=== PATIENT | female | born 1980 | race Caucasian/White ===

== ENCOUNTER 2017-07-21 09:00 | Emergency (ER) | payer MEDICAID ==
[~2017-07-21] VITALS: Wt 52.5 kg
[~2017-07-21 09:00] MED LIST: CEPH-443 PO; CIPR500T4 PO; PROM25TA14 PO; TRAM50TA2 PO
[2017-07-21] MEDS ORDERED: AZIT250T94 PO (09:48)
[2017-07-21] MEDS ORDERED: FLUT9.9S NASAL (09:48)
[2017-07-21] MEDS ORDERED: MED4DP PO (09:48)
[2017-07-21] MEDS ORDERED: LORA5TAB4 PO (09:48)
--- NOTE | 2017-07-21 12:09 | ERD ---
ER Documentation Chief Complaint Chief Complaint cough, shirley, joint, pain, earache, shirley HPI Patient is a 37-year-old female presenting to the emergency department with complaints of moderate, intermittent flulike symptoms for 1 month. She did take ampicillin for 7 days which did not improve her symptoms. She additionally reports full body aches. No other symptoms reported at this time. ROS All systems reviewed and are negative except as per history of present illness. Medications Home Meds Active Scripts Loratadine* (Claritin*) 5 Mg Tab.rapdis, 5 MG PO DAILY, #30 TAB Prov:TATO PRINGLE PA-C 07/21/17 Fluticasone Propionate (Flonase Allergy Relief) 9.9 Ml [place].susp, 1 SPRAY NASAL BID, #1 BOTTLE TO EACH NOSTRIL Prov:TATO PRINGLE PA-C 07/21/17 Azithromycin* (Zithromax*) 250 Mg Tablet, 250 MG PO .ZPACK DIRECTED, #6 TAB TAKE 500 MG (2 TABS) THE FIRST DAY THEN 250 MG (1 TAB) DAYS 2-5 Prov:TATO PRINGLE PA-C 07/21/17 Methylprednisolone* (Medrol* DOSE PACK) 4 Mg/Dose-Pack Tab.ds.pk, 4 MG PO . DIRECTED, #1 PACKET Prov:TATO PRINGLE PA-C 07/21/17 Cephalexin* (Keflex*) 500 Mg Capsule, 500 MG PO QID for 5 Days, CAP Prov:SUSAN TERRY NP 01/07/16 Promethazine Hcl* (Phenergan*) 25 Mg Tablet, 12.5 MG PO Q6 Y for NAUSEA AND/OR VOMITING, #10 TAB Prov:REGLA CASTRO MD 04/06/15 Promethazine Hcl* (Phenergan*) 25 Mg Tablet, 12.5 MG PO Q6 Y for NAUSEA AND/OR VOMITING, #12 TAB Prov:REGLA CASTRO MD 04/06/15 Tramadol HCl (Tramadol HCl) 50 Mg Tab, 50 MG PO Q4 Y for PAIN, #20 TAB Prov:REGLA CASTRO MD 04/06/15 Ciprofloxacin Hcl* (Ciprofloxacin Hcl*) 500 Mg Tablet, 500 MG PO BID for 10 Days , TAB Prov:REGLA CASTRO MD 04/06/15 Allergies Allergies: Coded Allergies: No Known Drug Allergy (Verified Allergy, Unknown, 01/07/16) PMhx/Soc History of Surgery: Yes (C SECTIONX2) Anesthesia Reaction: No Hx Neurological Disorder: No Hx Respiratory Disorders: No Hx Cardiac Disorders: No Hx Psychiatric Problems: No Hx Miscellaneous Medical Probl: Yes (HIGH CHOLESTEROL) Hx Alcohol Use: No Hx Substance Use: No Hx Tobacco Use: No Smoking Status: Never smoker Physical Exam Vitals Vital Signs Date Time Temp Pulse Resp B/P Pulse Ox O2 Delivery O2 Flow Rate FiO2 07/21/17 09:02 96.8 85 20 114/69 99 Physical Exam Const: Nontoxic, well-appearing female in no acute distress. Head: Atraumatic Eyes: Normal Conjunctiva ENT: Normal External Ears, Nose and Mouth. There is palpation of the frontal sinuses and the maxillary sinuses bilaterally. The throat is slightly erythematous and there is postnasal drainage. Neck: Full range of motion..~ No meningismus. Resp: Clear to auscultation bilaterally Cardio: Regular rate and rhythm, no murmurs Skin: No petechiae or rashes Ext: No cyanosis, or edema Neur: Awake and alert Psych: Normal Mood and Affect Procedures/MDM 37-year-old female presenting to the emergency department with sinusitis. Pt is stable and appropriate for outpatient management with prescriptions. No evidence of life-threatening pathology at time of discharge. Pt/family in agreement with discharge plan/diagnosis. Pt/family advised to return immediately with any new or worsening symptoms. Follow-up with primary care physician within the next 1-2 days. Departure Diagnosis: Primary Impression: Sinusitis Sinusitis location: unspecified location Chronicity: acute Recurrence: non -recurrent Qualified Code: J01.90 - Acute non-recurrent sinusitis, unspecified location Condition: Fair Patient Instructions: Sinusitis, Abx Tx [facility] Usted se shirley hecho un examen mdico de control que le indica que no est en cierra condicin que requiera tratamiento urgente en el Departamento de Emergencia. Un estudio ms profundo y el tratamiento de alvares condicin pueden esperar sin ningn riesgo hasta que usted sea atendida/o en el consultorio de alvares mdico o cierra cl lorrie. Es responsabilidad suya arreglar cierra wilber para el seguimiento del john. MANEJO DE CONDICIONES NO URGENTES EN EL FUTURO 1) Si usted tiene un mdico de atencin primaria: Usted debera llamar a alvares mdico de atencin primaria antes de venir al departamento de emergencia. Despus de las horas de consultorio, alvares doctor o alvares asociado/a est disponible por telfono. El mdico o enfermero de carie en el servicio telefnico puede asesorarle por melissa medio para atender el problema, o john contrario se puede programar cierra wilber. 2) Si usted no tiene un mdico de atencin primaria: Llame al mdico o clnica de referencia que aparece abajo holly las horas de consultorio para hacer cierra wilber para que le vean. CLINICAS: [facility] [phone] [address] [facility] [phone] [facility] [phone] [address] [facility] [phone] [address] [place] [id number] [phone] [facility] [address] [phone] [address] Additional Instructions: No mas mejor en 2-3 amaya, regresar. Mas peor en 24 horas, regresear rapidamente. Ir a doctor primario en 1-2 amaya. Usar instrucciones cuando sheree medicamento. TATO PRINGLE PA-C Jul 21, 2017 12:08
== END 2017-07-21 09:56 | disposition home or self-care (01) ==
LOC: FTE 09:00
DX: J01.90 Acute sinusitis, unspecified (principal)
CPT/HCPCS: 99284

== ENCOUNTER 2018-11-23 09:19 | Emergency (ER) | payer MEDICAID ==
[~2018-11-23] VITALS: Ht 154.9 cm; Wt 58.1 kg
[~2018-11-23 09:19] MED LIST changes: +AZIT250T PO; +FLUT9.9S NASAL; +LORA5TAB4 PO; +MED4DP PO
[2018-11-23 09:35] VITALS: BP 126/82; PULSE 72; RESP 19; Ht 154.9 cm; Wt 58.1 kg
[2018-11-23] MEDS ORDERED: PSEU-79 PO (10:00)
[2018-11-23] MEDS ORDERED: FLUT9.9S NASAL (10:00)
[2018-11-23] MEDS ORDERED: AMOX1TAB10 PO (10:00)
[2018-11-23] MEDS ORDERED: MED4DP PO (10:00)
--- NOTE | 2018-11-23 10:14 | ERD ---
ER Documentation Chief Complaint Chief Complaint NASAL CONGESTON; FEVER HPI 38-year-old female presenting with nasal congestion and fever. Patient been taking Claritin and Advil with no alleviation. She states she had progressive symptoms for the last month and has had significant worsening of facial pressure. She has tactile fevers at home. Has a runny nose with a dry cough. Denies medical problems. NKDA. Surgical history denies. Social history denies ROS All systems reviewed and are negative except as per history of present illness. Medications Home Meds Active Scripts Fluticasone Propionate (Flonase Allergy Relief) 9.9 Ml [place].susp, 1 SPRAY NASAL BID, #1 BOTTLE TO EACH NOSTRIL Prov:CANDY COLE PA-C 11/23/18 Pseudoephedrine Hcl* (Suphedrin*) 30 Mg Tablet, 30 MG PO Q6 PRN for CONGESTION, #30 TAB Prov:CANDY COLE PA-C 11/23/18 Amoxicillin/Potassium Clav (Amox-Clav 875-125 mg Tablet) 875-125 mg Tab, 1 TAB PO BID for 7 Days, #14 TAB Prov:CANDY COLE PA-C 11/23/18 Methylprednisolone* (Medrol* DOSE PACK) 4 Mg/Dose-Pack Tab.ds.pk, 4 MG PO . DIRECTED, #1 PACKET Prov:CANDY COLE PA-C 11/23/18 Loratadine* (Claritin*) 5 Mg Tab.rapdis, 5 MG PO DAILY, #30 TAB Prov:TATO PRINGLE PA-C 07/21/17 Fluticasone Propionate (Flonase Allergy Relief) 9.9 Ml [place].susp, 1 SPRAY NASAL BID, #1 BOTTLE TO EACH NOSTRIL Prov:TATO PRINGLE PA-C 07/21/17 Azithromycin* (Zithromax*) 250 Mg Tablet, 250 MG PO .JAY DIRECTED, #6 TAB TAKE 500 MG (2 TABS) THE FIRST DAY THEN 250 MG (1 TAB) DAYS 2-5 Prov:TATO PRINGLE PA-C 07/21/17 Methylprednisolone* (Medrol* DOSE PACK) 4 Mg/Dose-Pack Tab.ds.pk, 4 MG PO . DIRECTED, #1 PACKET Prov:TATO PRINGLE PA-C 07/21/17 Cephalexin* (Keflex*) 500 Mg Capsule, 500 MG PO QID for 5 Days, CAP Prov:SUSAN TERRY NP 01/07/16 Promethazine Hcl* (Phenergan*) 25 Mg Tablet, 12.5 MG PO Q6 PRN for NAUSEA AND/OR VOMITING, #10 TAB Prov:REGLA CASTRO MD 04/06/15 Promethazine Hcl* (Phenergan*) 25 Mg Tablet, 12.5 MG PO Q6 PRN for NAUSEA AND/OR VOMITING, #12 TAB Prov:REGLA CASTRO MD 04/06/15 Tramadol HCl (Tramadol HCl) 50 Mg Tab, 50 MG PO Q4 PRN for PAIN, #20 TAB Prov:REGLA CASTRO MD 04/06/15 Ciprofloxacin Hcl* (Ciprofloxacin Hcl*) 500 Mg Tablet, 500 MG PO BID for 10 Days, TAB Prov:REGLA CASTRO MD 04/06/15 Allergies Allergies: Coded Allergies: No Known Drug Allergy (Verified Allergy, Unknown, 01/07/16) PMhx/Soc History of Surgery: Yes (C SECTIONX2) Anesthesia Reaction: No Hx Neurological Disorder: No Hx Respiratory Disorders: No Hx Cardiac Disorders: No Hx Psychiatric Problems: No Hx Miscellaneous Medical Probl: Yes (HIGH CHOLESTEROL) Hx Alcohol Use: No Hx Substance Use: No Hx Tobacco Use: No FmHx Family History: No diabetes, No coronary disease, No other Physical Exam Vitals Vital Signs Date Temp Pulse Resp B/P (MAP) Pulse Ox O2 O2 Flow FiO2 Time Delivery Rate 11/23/18 99.1 72 19 126/82 100 09:35 (97) Physical Exam GENERAL: The patient is well-appearing, well-nourished, in no acute distress HEENT: Atraumatic. Conjunctivae are pink. Pupils equal, round, and reactive to light. There is no scleral icterus. Tympanic membranes clear bilaterally. Oropharynx clear. NECK: C-spine is soft and supple. There is no meningismus. There is no cervical lymphadenopathy. CHEST: Clear to auscultation bilaterally. There are no rales, wheezes or rhonchi. HEART: Regular rate and rhythm. No murmurs, clicks, rubs or gallops. Procedures/MDM MDM: 38-year-old female presenting with findings consistent with sinusitis. I have low suspicion for meningitis or sepsis. Patient is discharged with antibiotics and supportive medications. Patient is told if symptoms change or worsen to return immediately to the ER. Patient is recommended to follow-up with primary care within 1-2 days for close evaluation. I have low suspicion for pneumonia. All questions answered at discharge Departure Diagnosis: Primary Impression: Sinusitis Condition: Stable Patient Instructions: Sinusitis, Abx Tx Referrals: [facility] YOU HAVE RECEIVED A MEDICAL SCREENING EXAM AND THE RESULTS INDICATE THAT YOU DO NOT HAVE A CONDITION THAT REQUIRES URGENT TREATMENT IN THE EMERGENCY DEPARTMENT. FURTHER EVALUATION AND TREATMENT OF YOUR CONDITION CAN WAIT UNTIL YOU ARE SEEN IN YOUR DOCTORS OFFICE WITHIN THE NEXT 1-2 DAYS. IT IS YOUR RESPONSIBILITY TO MAKE AN APPOINTMENT FOR FOLOW-UP CARE. IF YOU HAVE A PRIMARY DOCTOR --you should call your primary doctor and schedule an appointment IF YOU DO NOT HAVE A PRIMARY DOCTOR YOU CAN CALL OUR PHYSICIAN REFERRAL HOTLINE AT IF YOU CAN NOT AFFORD TO SEE A PHYSICIAN YOU CAN CHOSE FROM THE FOLLOWING [facility] [address] [facility]. [facility] [address] [facility] [facility] [address] [facility] [facility] [address] [facility]. [facility] [address] [facility]. [facility]. [address] Additional Instructions: FOLLOW UP WITH YOUR PRIMARY CARE PHYSICIAN TOMORROW.Return to this facility if you are not improving as expected. CANDY COLE PA-C Nov 23, 2018 10:14
== END 2018-11-23 10:23 | disposition home or self-care (01) ==
LOC: FTE 09:19
DX: J32.9 Chronic sinusitis, unspecified (principal)
CPT/HCPCS: 99283